=== PATIENT | female | born 1955 | race Caucasian/White ===

== ENCOUNTER → 2016-02-11 | Outpatient (CLI) | payer BC ==
[~2016-02-11] MED LIST: ACCUPRIL10 MG PO; ACCUPRIL5 MG PO; ASPIR-LOW81 MG PO; ASPIRIN E.C. 8181 MG PO; BYETTA; BYETTA PO; CALCIUM CARBON500 M1 PO; CENTRUM1 TAB PO; COENZYME Q-1010 MG PO; DUETACT; DUETACT 2 MG-301 TAB PO; FISH OIL1 IU PO; FORTAMET1000 MG PO; GLUCOSAMINE/CHONDROI PO; LANTUS100 U/ML SQ; ST JOHN S WORT; VITAMIN C500 MG PO; VITAMIN E1000 U/CAP PO; VITAMIN E200 I1 PO; ZITHROMAX Z PA250 MG PO; ZOCOR80 MG PO
== END ==
LOC: COL.CARD 09:00
DX: I48.0 Paroxysmal atrial fibrillation (principal); I48.92 Unspecified atrial flutter; R00.0 Tachycardia, unspecified

== ENCOUNTER → 2016-12-24 | Outpatient (CLI) | payer BC | LOC: COL.RAD 11:46 | DX: N17.8 Other acute kidney failure (principal) ==

== ENCOUNTER → 2018-04-05 | Outpatient (REF) | LOC: ZLAB.WCH 16:02 | DX: Z01.89 Encounter for other specified special examinations (principal) ==